=== PATIENT | female | born 1990 | race Caucasian/White ===

== ENCOUNTER 2018-05-02 18:10 | Outpatient (CLI) | payer OTHER ==
[~2018-05-02] VITALS: Ht 160 cm; Wt 75.7 kg
[~2018-05-02 18:10] MED LIST: BACTDS PO; HYDR-3980 PO; IBUP-1542 PO
[2018-05-02 18:19] VITALS: BP 102/58; PULSE 95; RESP 20; Ht 160 cm; Wt 75.7 kg
[2018-05-02] MEDS ORDERED: PREN1TAB13 PO (18:21)
--- NOTE | 2018-05-02 20:42 | PN ---
Triage Information Date/Time 05/02/18 Reason for visit: groin pain with walking and standing ,resting alleviated pain Weeks of Gestation 30w2d /Para Diabetes: none Hypertention: none Objective Vital Signs Date Temp Pulse Resp B/P (MAP) Pulse Ox O2 O2 Flow FiO2 Time Delivery Rate 05/02/18 97.4 95 20 102/58 Room Air 18:19 (73) Heart Rate: 130's Heart Rate Comments CAT I Contractions: None Exam abdomen soft no tenderness Results/Medications Result Diagram: 05/02/181905 Results 24 hrs Laboratory Tests Test 05/02/18 19:06 05/02/18 19:15 White Blood Count 10.4 Red Blood Count 3.64 L Hemoglobin 10.2 L Hematocrit 31.5 L Mean Corpuscular Volume 86.5 Mean Corpuscular Hemoglobin 28.0 L Mean Corpuscular Hemoglobin Concent 32.4 Red Cell Distribution Width 13.1 Platelet Count 211 Mean Platelet Volume 8.8 Immature Granulocytes % 2.000 H Neutrophils % 70.2 Lymphocytes % 14.7 L Monocytes % 10.8 Eosinophils % 1.9 Basophils % 0.4 Nucleated Red Blood Cells % 0.0 Immature Granulocytes # 0.210 H Neutrophils # 7.3 Lymphocytes # 1.5 Monocytes # 1.1 H Eosinophils # 0.2 Basophils # 0.0 Nucleated Red Blood Cells # 0.0 Urine Color YELLOW Urine Clarity CLEAR Urine pH 6.0 Urine Specific [place] 1.009 Urine Ketones NEGATIVE Urine Nitrite NEGATIVE Urine Bilirubin NEGATIVE Urine Urobilinogen NEGATIVE Urine Leukocyte Esterase TRACE A Urine Microscopic RBC 0 Urine Microscopic WBC 1 Urine Hemoglobin NEGATIVE Urine Glucose NEGATIVE Urine Total Protein NEGATIVE Imaging Results CVL 4.3 BPP 8/8 SHANNAN 20.9 Disposition: Discharge Assessment/Plan A IUP 30w2d groin pain secondary to P advise to rest prn with comon sense also advise not to ride bike(stationary) RTH prn with routine labor instructions BEHZAD BABCOCK MD May 02, 2018 20:42
--- NOTE | 2018-05-03 06:04 | TRIAGE ---
OB Triage Datetime Report Generated by CPN: 05/03/2018 06:03 Datetime: 05/02/2018 20:28 Stage of : OB Triage Monitor Mode: External US FHR Baseline Changes: No Baseline Change Variability: Moderate 6-25 bpm Accelerations: 15X15 Datetime: 05/02/2018 19:29 Stage of : OB Triage Labor Evaluation Monitor Mode: External Quality: Mild Pattern: Normal: <= 5 Contractions in 10 Minutes Resting Tone [place]: Relaxed Heart Rate FHR Baseline Rate: 130 Monitor Mode: External US FHR Baseline Changes: No Baseline Change Variability: Moderate 6-25 bpm Accelerations: 15X15 Decelerations: None Category: Category I Datetime: 05/02/2018 19:00 Labor Evaluation Monitor Mode: External Heart Rate FHR Baseline Rate: 140 Monitor Mode: External US FHR Baseline Changes: No Baseline Change Variability: Moderate 6-25 bpm Accelerations: 15X15 Decelerations: None Category: Category I Pain Assessment Pain Presence: Constant Pain Type: Ache Pain Location: Perineum Datetime: 05/02/2018 18:16 EGA: 30.2 Datetime: 05/02/2018 18:14 Stage of : OB Triage Assessment Type: Triage Maternal Assessment Level of Consciousness: Fully Conscious DTR's/Clonus: DTRs 2+; No Clonus Headache: Denies Blurred Vision: No Respiratory Effort: Unlabored; Regular Rhythm; Equal Expansion Breath Sounds, Left: Clear and Equal Breath Sounds, Right: Clear and Equal Nausea/Vomiting: Denies RUQ Epigastric Pain: Denies Lower Extremities Edema: None Degree: None Upper Extremities Edema: None Degree: None Facial Edema: None Temperature Route: Axillary Fall Risk Assessment History of Falling: (0) No Secondary Diagnosis: (0) No Ambulatory Aid: (0) Bedrest/Nurse Assist IV Therapy: (0) No Gait: (0) Normal/Bedrest/Immobile Mental Status: (0) Oriented to Own Ability Fall Score: 0 Fall Risk Score Definition: No Risk: No action required Datetime: 05/02/2018 17:56 Time of Arrival: 05/02/2018 17:56 EGA: 30.1 Arrived By: Ambulatory Arrived From: Home Chief Complaint: GROIN PAIN WHEN AMBULATING Movement: Present Rupture of Membranes: Denies Vaginal Bleeding: None Vaginal Discharge: Denies Recent Sexual Intercouse: Denies Abdominal Trauma: Not Applicable Patient Complaints: Other Initial Plan: NST/BPP/CERVICAL LENGTH, UA, CBC
== END 2018-05-02 20:40 | disposition home or self-care (01) ==
LOC: OBT 18:10 → L-D 18:11 → OBT 20:40
PROVIDERS: ATTEND Obstetrics & Gynecology
DX: O26.893 Other specified pregnancy related conditions, third trimester (principal); Z3A.30 30 weeks gestation of pregnancy; R10.30 Lower abdominal pain, unspecified
CPT/HCPCS: 76817; 76818; 81001; 85025; 87086; G0463

== ENCOUNTER 2018-07-09 14:11 | Inpatient (IN) | payer OTHER ==
[~2018-07-09] VITALS: Ht 160 cm; Wt 81.4 kg
[~2018-07-09 14:11] MED LIST changes: -BACTDS PO; -HYDR-3980 PO; -IBUP-1542 PO; +PREN1TAB13 PO
[2018-07-09] MEDS ORDERED: LACTATED RINGER'S 1,000 ML IV SCH ×2 (14:19→22:17)
[2018-07-09 14:22] VITALS: Ht 160 cm; Wt 81.4 kg
[2018-07-09] MEDS ORDERED: OXYTOCIN 30 UNITS/LR 500 ML IV SCH (14:30)
[2018-07-09] MEDS ORDERED: CARBOPROST 250 MCG INJ IM PRN ×2 (14:30→22:30)
[2018-07-09] MEDS ORDERED: MISOPROSTOL 200 MCG TAB PR PRN ×2 (14:30→22:30)
[2018-07-09] MEDS ORDERED: OXYTOCIN 30 UNITS/LR 500 ML IV PRN ×2 (14:30→22:30)
[2018-07-09] MEDS ORDERED: CEFAZOLIN 2 GM/50 ML (PMX) 50 ML IVPB SCH (14:30)
[2018-07-09] MEDS ORDERED: METHYLERGONOVINE 0.2 MG INJ IM PRN ×2 (14:30→22:30)
[2018-07-09] MEDS ORDERED: PROPOFOL 200 MG INJ ONE (16:00)
[2018-07-09] MEDS ORDERED: CEFAZOLIN 1 GM INJ ONE (16:00)
--- NOTE | 2018-07-09 16:19 | PREAC ---
Date/Time of Note Date/Time of Note DATE: 07/09/18 TIME: 16:18 Anesthesia Eval and Record Evaluation Time Pre-Procedure Interview DATE: 07/09/18 TIME: 16:18 Age 27 Sex female NPO: 8 hrs Preoperative diagnosis primary c section Planned procedure primary c section Past Medical History Past Medical History: None Surgery & Anesthesia Issues No known issue Meds Anticoagulation: No Beta Gerry within 24 hr: No Reason Beta Gerry not given: Pt. not on B-Gerry Reported Medications Pnv95/Ferrous Fumarate/FA ( Vitamins Tablet) 1 Each Tablet, 1 EACH PO DAILY, TAB 05/02/18 Current Medications Lactated Ringer's 1,000 ml @ 125 mls/hr Q8H IV Last administered on 07/09/18at 15:22; Admin Dose 125 MLS/HR; Start 07/09/18 at 14:19 Cefazolin Sodium/ Dextrose 50 ml @ 100 mls/hr ONCE IVPB ; Start 07/09/18 at 14:30 Oxytocin/Lactated Ringer's 500 ml @ 125 mls/hr POST IV ; Start 07/09/18 at 14:30 Oxytocin/Lactated Ringer's 500 ml @ 0 mls/hr ONCE PRN IV .VAGINAL BLEEDING; Start 07/09/18 at 14:30 Methylergonovine Maleate (Methergine) 0.2 mg ONCE PRN IM .VAGINAL BLEEDING; Start 07/09/18 at 14:30 Carboprost Tromethamine (Hemabate) 250 mcg ONCE PRN IM .VAGINAL BLEEDING; Start 07/09/18 at 14:30 Misoprostol (Cytotec) 1,000 mcg ONCE PRN NM .VAGINAL BLEEDING; Start 07/09/18 at 14:30 Meds reviewed: Yes Allergies Coded Allergies: No Known Allergy (Unverified , 12/02/15) Allergies Reviewed: Yes Labs/Studies Labs Reviewed: Reviewed by anesthesiologist Result Diagram: 07/09/18 1430 Laboratory Tests 07/09/18 14:30 Blood Bank Test 07/09/18 14:30 Antibody Screen NEGATIVE Blood Type O POSITIVE Rh Immune Globulin Candidate NO test: N/A Pre-procedure Exam Airway: Adequate mouth opening, Adequate thyromental dist Mallampati: Mallampati IV Teeth: Normal Lung: Normal Heart: Normal ASA Physical Status ASA physical status: 2 Emergency: None Pre-operative Attestations Prior to commencing anesthesia and surgery, the patient was re-evaluated, there was verification of: *The patient's identity *The results of appropriate recent lab work and preoperative vital signs *The above evaluation not changing prior to induction *Anesthetic plan, risk benefits, alternative and complications discussed with patient/family; questions answered; patient/family understands, accepts and wishes to proceed. JAMAR SHARPE DO July 09, 2018 16:19
[2018-07-09] MEDS ORDERED: FENTAnyl 50 MCG/ML VIAL ONE (16:39)
[2018-07-09] MEDS ORDERED: morphine SULFATE/PF (10 MG/10 ML) INJ ONE (16:39)
[2018-07-09] MEDS ORDERED: PHENYLephrine (100 MCG/ML) 10ML SYG ONE (16:50)
[2018-07-09] MEDS ORDERED: ONDANSETRON 4 MG INJ ONE (16:57)
[2018-07-09] MEDS ORDERED: DEXAMETHASONE 4 MG/ML 1 ML INJ ONE (16:57)
[2018-07-09] MEDS ORDERED: FAMOTIDINE 20 MG INJ ONE (16:58)
[2018-07-09] MEDS ORDERED: AZITHROMYCIN 500MG/NS (PMX) 250 ML IVPB ONE (17:00)
[2018-07-09] MEDS ORDERED: MIDAZOLAM 1 MG/ML 2 ML INJ ONE (17:11)
--- NOTE | 2018-07-09 18:00 | HP ---
Date/Time of Note Date/Time of Note DATE: 07/09/18 TIME: 17:56 OB - History Hx of Present Free Text/Dictation 27-year-old patient 2 para 1 at 40 weeks gestation admitted because of a request to have a delivery This service on multiple occasions tried really aggressively change the patient mind however she remained hardheaded about having a primary section as mode of delivery She already had vaginal delivery before and yet she did not have any further vaginal deliveries Last Menstrual Period: Nov 11, 2017 Estimated Due Date: July 09, 2018 : 2 Para: 1 Care: Good Care Ultrasounds: Normal mid trimester US Obstetrical Complications: None Medical Complications: None Past Family/Social History * Past Medical, Surgical, Family and Obstetric Histories reviewed from chart. Blood Type: O+ Rubella: immune RPR/VDRL: Negative GBS Status: Negative HBsAG: Negative OB Admission Exam Physical Exam HEENT: WNL Heart: Rhythm Normal Lungs: Clear, Equal Abdomen: WNL Extremities: Normal Reflexes: Normal Cervical Dilatation: None Effacement: 0% Station: -3 Membranes: Intact Heart Rate: 140's Accelerations: Accelerations Present Decelerations: No Decelerations Varibility: Marked Contractions on Admission: None Last 72 hours Lab Results CBC & BMP 07/09/18 14:30 OB Assessment/Plan Other Assessment: Term gestation Patient demands a delivery Other plan: We will proceed with primary section SHARDA ELLIOTT MD July 09, 2018 18:00
[2018-07-09] MEDS ORDERED: KETOROLAC 30 MG INJ IV STA (18:12)
[2018-07-09] MEDS ORDERED: ACETAMINOPHEN 500 MG TAB PO STA (18:12)
--- NOTE | 2018-07-09 18:12 | OPR ---
Operative Report Planned Procedure Procedure date July 09, 2018 Procedure(s) Primary delivery Performed by see signature line Parts Counter Salesperson: ANTONIO TRISTAN M.D. Anesthesiologist: JAMAR SHARPE DO Pre-procedure diagnosis Term gestation No desire for vaginal delivery [id number] Anesthesia Type: [id number] spinal Post-Procedure Post-procedure diagnosis Status post Findings Live Baby in OT position Meconium stained amniotic fluid Normal-appearing right and left fallopian tubes and ovaries Estimated Blood Loss: 500 - 600 mls Specimen(s) none Grafts/Implant(s) none Complication(s) none Pt Condition post procedure: stable Disposition: PACU Procedure Description Under satisfactory anaesthesia a Pfannenstiel incision was made two fingerbreadth above and parallel to the symphysis of pubis. Incision was extended laterally to the border of the Recti muscles on either sides. Incision was carried down with sharp and blunt dissection until fascia was reached. Anterior Recti muscle fascia was incised in mid portion and incis ion extended laterally to the border of skin incision. Fascia was mobilized from muscle superiorly and Recti muscles were from midline using sharp and blunt dissection. Peritoneum was visualized; Avoiding bowel and bladder it was incised . Incision was extended superiorly and inferiorly. Bladder blade was placed. Posterior peritoneum covering the lower segment of the uterus and lower segment of the uterus were incised. Incision was extended laterally to the border of Round Lig. on either sides and baby was delivered from OP. position . Amniotic fluid appeared clear. Cord blood was obtained and cord had 3 vessels . Placenta was delivered spontaneously and appeared intact and complete. Intrauterine cavity was rubbed with a laparotomy sponge. Uterine incision was closed in 2 layers using running stitches of No1 Monocryl. Hemostasis appeared secure. Ovaries and Fallopian tubes were within normal limits. Announcing needle, lap sponge and instrument count to be correct abdomen was closed in layers as follows: Peritoneum and Recti muscles with running stitches of 20 Vicryl. Fascia with running stitch of No 1 PDS. Subcutaneous tissue with running stitches of 2-0 Monocryl and skin was closed using liya. Patient tolerated the procedure well and was transferred to [facility] in good condition. SHARDA ELLIOTT MD July 09, 2018 18:12
[2018-07-09 20:35] VITALS: BP 106/69; RESP 19
[2018-07-09] MEDS ORDERED: DIPHENHYDRAMINE 50 MG INJ IV PRN (22:30)
[2018-07-09] MEDS ORDERED: OXYCODONE/ACETAMINOPHEN (5/325) TAB PO PRN (22:30)
[2018-07-09] MEDS ORDERED: NALOXONE (0.4 MG/ML) INJ IV PRN (22:30)
[2018-07-09] MEDS ORDERED: HYDROmorphONE 0.5 MG/0.5 ML SYG IV PRN ×2 (22:30)
[2018-07-09] MEDS ORDERED: ZOLPIDEM 5 MG TAB PO PRN (22:30)
[2018-07-09] MEDS ORDERED: NA PHOSPHATE/BIPHOS 133 ML ENEMA PR PRN (22:30)
[2018-07-10] VITALS: BP 93/51; RESP 19
[2018-07-10] MEDS: CEFAZOLIN 2 GM/50 ML (PMX) 50 ML IVPB SCH ×3 (01:08→16:13)
[2018-07-10] MEDS: KETOROLAC 30 MG INJ IV PRN ×3 (01:09→16:43)
[2018-07-10 04:00] VITALS: BP 100/51; RESP 18
[2018-07-10] MEDS: CLINDAMYCIN 300 MG CAP PO SCH ×4 (06:00→17:39)
[2018-07-10] MEDS: LACTATED RINGER'S 1,000 ML IV SCH ×2 (06:50→15:00)
[2018-07-10 07:57] VITALS: BP 96/51; PULSE 82; RESP 18
[2018-07-10] MEDS ORDERED: BISACODYL 10 MG SUPP PR ONE (11:30)
[2018-07-10 12:00] VITALS: BP 90/54; PULSE 73; RESP 18
--- NOTE | 2018-07-10 13:57 | PN ---
Date/Time of Note Date/Time of Note DATE: 07/10/18 TIME: 13:56 Assessment/Plan VTE Prophylaxis VTE Prophylaxis Intervention: ambulation Lines/Catheters IV Catheter Type (from Nrsg): Peripheral IV Assessment/Plan Assessment/Plan Status post delivery postop day #1 Advance diet and ambulate Continue to monitor vital signs Repeat CBC next day because of elevated white Subjective 24 Hr Interval Summary Passing flatus and no bowel movement Constitutional: no complaints, improved, ambulates, BM, flatus, urine output Pain Control: well controlled Exam/Review of Systems Vital Signs Vitals Vital Signs Date Temp Pulse Resp B/P (MAP) Pulse Ox O2 O2 Flow FiO2 Time Delivery Rate 07/10/18 98.0 82 18 96/51 (66) 07:57 07/10/18 96 04:00 07/09/18 Room Air 20:35 Intake and Output 07/09/18 07/09/18 07/10/18 1515:00 23:00 07:00 IntakeIntake Total 1250 ml OutputOutput Total 954 ml 1100 ml BalanceBalance 296 ml -1100 ml Exam Free Text/Dictation Abdomen is soft with present bowel sounds, abdomen does not seem distended Incision is covered Constitutional: alert, oriented, well developed Psych: no complaints, nl mood/affect Head: normocephalic, atraumatic Eyes: nl conjunctiva, EOMI, nl lids, nl sclera ENMT: nl external ears & nose, nl lips & teeth, nl nasal mucosa & septum, mucosa pink and moist Neck: supple, non-tender Respiratory: clear to auscultation, normal air movement Cardiovascular: regular rate and rhythm, nl pulses Gastrointestinal: soft, nl liver, spleen, non-tender Musculoskeletal: nl extremities to inspection, nl gait and stance Extremities: normal pulses Neurological: BATTERY TESTER FIELD II-XII intact, nl mental status, nl speech, nl strength Skin: nl turgor, rash or lesions Lymph: nl lymph nodes Results Result Diagram: 07/10/18 0736 SHARDA ELLIOTT MD July 10, 2018 13:57
--- NOTE | 2018-07-10 14:29 | PAC ---
Date/Time of Note Date/Time of Note DATE: 07/10/18 TIME: 14:29 Post-Anesthesia Notes Post-Anesthesia Note Last documented vital signs Vital Signs Date Temp Pulse Resp B/P (MAP) Pulse Ox O2 O2 Flow FiO2 Time Delivery Rate 07/10/18 98.0 73 18 90/54 (66) 94 Room Air 12:00 Activity: WNL Respiratory function: WNL Cardiovascular function: WNL Mental status: Baseline Pain reasonably controlled: Yes Hydration appropriate: Yes Nausea/Vomiting absent: Yes JAMAR SHARPE DO July 10, 2018 14:29
[2018-07-10 16:03] VITALS: BP 95/53; PULSE 82
[2018-07-10 19:30] VITALS: BP 97/58; PULSE 79; RESP 18
[2018-07-10] MEDS: LANOLIN HPA 1 PKT TOP PRN (22:13)
[2018-07-10] MEDS: IBUPROFEN 800 MG TAB PO SCH (22:13)
[2018-07-10] MEDS: SENNA/DOCUSATE NA (8.6MG/50MG) TAB PO SCH (22:14)
[2018-07-11] MEDS: CLINDAMYCIN 300 MG CAP PO SCH ×4 (00:25→17:16)
[2018-07-11] MEDS: HYDROCODONE/APAP (5/325) TAB PO PRN (00:25)
[2018-07-11 04:00] VITALS: BP 93/55; PULSE 72; RESP 18
[2018-07-11] MEDS: IBUPROFEN 800 MG TAB PO SCH ×3 (05:26→22:08)
[2018-07-11 07:59] VITALS: BP 82/54; PULSE 71; RESP 16
[2018-07-11] MEDS: SENNA/DOCUSATE NA (8.6MG/50MG) TAB PO SCH ×2 (09:08→20:44)
[2018-07-11 12:30] VITALS: BP 101/64; PULSE 83; RESP 17
--- NOTE | 2018-07-11 14:37 | DS ---
Date/Time of Note Date/Time of Note Home today or next day DATE: 07/11/18 TIME: 14:36 Obstetrical Discharge Record Final Diagnosis Final Diagnosis: Term delivered Other Final Diagnosis Status post delivery Section Section: Primary Primary Indication Patient request Condition on Discharge Physical Assessment Last Vitals: See nurse's notes Voiding: Yes Bowel Movement: Yes Breast: Soft, non-tender, Filling Fundus: Firm Abdomen and Incision: Abdomen is soft with firm fundus Incision is without induration and no erythema Calf Tenderness: No Patient Condition: Good SHARDA ELLIOTT MD July 11, 2018 14:37
--- NOTE | 2018-07-11 14:38 | DS ---
Date/Time of Note Date/Time of Note DATE: 07/11/18 TIME: 14:37 Discharge Summary Admission/Discharge Info Admit Date/Time July 09, 2018 at 14:11 Discharge Date/Time July 11 or July 12, 2018 Discharge Diagnosis Status post delivery Patient Condition: Good Procedures Primary Hx of Present Illness 27-year-old female underwent primary section per her request Hospital Course She had uncomplicated course and was discharged home on his second or third day tolerating regular diet fully ambulatory with good prognosis and condition Home Meds Reported Medications Pnv95/Ferrous Fumarate/FA ( Vitamins Tablet) 1 Each Tablet, 1 EACH PO DAILY, TAB 05/02/18 Follow-up Plan 4 days in clinic for staple removal Primary Care Provider Not On Staff Doctor Time spent on discharge: > 30 minutes Pending Labs Laboratory Tests Test 07/11/18 06:20 White Blood Count 11.5 10^3/ul (4.8-10.8) Red Blood Count 3.72 10^6/ul (4.20-5.40) Hemoglobin 9.5 g/dl (12.0-16.0) Hematocrit 30.4 % (37.0-47.0) Mean Corpuscular Volume 81.7 fl (82.0-101.0) Mean Corpuscular Hemoglobin 25.5 pg (29.0-33.0) Mean Corpuscular Hemoglobin Concent 31.3 g/dl (32.0-37.0) Red Cell Distribution Width 15.9 % (11.5-14.5) Platelet Count 277 10^3/UL (140-415) Mean Platelet Volume 9.4 fl (7.4-10.4) Immature Granulocytes % 0.900 % (0.001-0.429) Neutrophils % 70.5 % (39.0-77.0) Lymphocytes % 16.5 % (15.0-51.0) Monocytes % 10.0 % (0.0-11.0) Eosinophils % 1.7 % (0.0-7.0) Basophils % 0.4 % (0.0-2.0) Nucleated Red Blood Cells % 0.0 /100WBC (0.0-0.0) Immature Granulocytes # 0.100 10^3/ul (0.0-0.031) Neutrophils # 8.1 10^3/ul (1.6-7.5) Lymphocytes # 1.9 10^3/ul (0.8-2.9) Monocytes # 1.1 10^3/ul (0.3-0.9) Eosinophils # 0.2 10^3/ul (0.0-0.5) Basophils # 0.1 10^3/ul (0.0-0.1) Nucleated Red Blood Cells # 0.0 10^3/ul (0.0-0.0) SHARDA ELLIOTT MD July 11, 2018 14:38
[2018-07-11] MEDS ORDERED: ACET325T33 PO (14:48)
--- NOTE | 2018-07-11 14:48 | PD.PPDC ---
[employer]TA[employer]CHANDISING Discharge Instruction Provider Information Physician Information 27-year-old female had primary section per request Diagnosis [id number] Final Diagnosis: Gpmyu0m Status post Condition [id number] Patient Condition: Uzuev0p Good Diet Ikfhi1Vd Diet: Lnylv6t Resume Regular Diet Activity/Restrictions Pytma6Mw Activity: Dqeof9i May Shower Rrebz8Qk Restrictions: Dekvh1e No Exercising Nothing in the Vagina Vvkhs2Yu Return to Work or School: Rblll4b Sep 09, 2018 Wound/Drain Care Instructions Dwroc9Vm Wound/Drain Care Instructions: Ntrmd0j Keep clean and dry Follow-up Follow-up with Physician: 4, Day/Days (In clinic for staple removal) 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
[2018-07-11] MEDS ORDERED: IBUP800T48 PO (14:49)
[2018-07-11] MEDS ORDERED: ACETAMINOPHEN 325 MG TAB PO PRN (15:00)
[2018-07-11 15:50] VITALS: BP 95/61; PULSE 76; RESP 18
[2018-07-11 20:00] VITALS: BP 109/73; PULSE 75; RESP 19
[2018-07-11] MEDS: LANOLIN HPA 1 PKT TOP PRN (22:08)
[2018-07-12] MEDS: CLINDAMYCIN 300 MG CAP PO SCH ×3 (00:17→13:21)
[2018-07-12] MEDS: HYDROCODONE/APAP (5/325) TAB PO PRN (00:20)
[2018-07-12 04:27] VITALS: BP 101/63; PULSE 74; RESP 18
[2018-07-12] MEDS: IBUPROFEN 800 MG TAB PO SCH ×2 (06:28→13:22)
[2018-07-12 08:28] VITALS: BP 85/54; PULSE 66; RESP 16
[2018-07-12] MEDS ORDERED: DIPHTH/TET/ACEL PERTUSS (ADULT) 0.5 ML VIAL IM* ONE (09:00)
[2018-07-12] MEDS ORDERED: MEASLES,MUMPS,RUBELLA VACCINE INJ SC* ONE (09:00)
[2018-07-12] MEDS: SENNA/DOCUSATE NA (8.6MG/50MG) TAB PO SCH (10:18)
--- NOTE | 2018-07-13 15:43 | DELSUM ---
Delivery Summary A-C Datetime Report Generated by CPN: 07/13/2018 15:42 DELIVERY PERSONNEL Commercial Loan Processor: Villondo, Samanta MATERNAL INFORMATION Delivery Anesthesia: Spinal Medications in Delivery: See Anesthesiologist notes Delivery QBL (ml): 600 Placenta Cultured: No Maternal Complications: None LABOR SUMMARY EDC: 07/09/2018 00:00 No. Babies in Womb: 1 Attempted: No Labor Anesthesia: None LABOR INFORMATION Reason for Induction: Not Applicable Oxytocin: N/A Group B Beta Strep: Negative Antibiotics # of Doses: 2 Antibiotics Time of Last Dose: 07/09/2018 16:50 Steroids Given: None Reason Steroids Not Administered: Not Applicable MEMBRANES Membranes Rupture Method: Artificial Rupture of Membranes: 07/09/2018 17:08 Length of Rupture (hr): 0.02 Amniotic Fluid Color: Clear Amniotic Fluid Amount: Moderate Amniotic Fluid Odor: None STAGES OF LABOR Stage 3 hr: 0 Stage 3 min: 2 CSECTION DELIVERY Primary Indication: Other Other Primary Indication: Elective CSection Urgency: Elective CSection Incidence: Primary Labor: No Labor Elective: Elective CSection Incision: Lower Uterine Transverse BABY A INFORMATION Delivery Date/Time: 07/09/2018 17:09 Method of Delivery: Born in Route : No : N/A Forceps: N/A Vacuum Extraction: N/A Shoulder Dystocia : N/A SHOULDER DYSTOCIA BABY A Delivery Date/Time: 07/09/2018 17:09 PRESENTATION/POSITION BABY A Presentation: Cephalic Cephalic Presentation: Vertex Vertex Position: Left Occipital Anterior Breech Presentation: N/A PLACENTA INFORMATION BABY A Placenta Delivery Time : 07/09/2018 17:11 Placenta Method of Delivery: Manual Removal Placenta Status: Delivered SCORES BABY A Heart Rate 1 min: >100 bpm Resp Effort 1 min: Good Cry Reflex Irritability 1 min: Cough/Sneeze/Pulls Away Muscle Tone 1 min: Active Motion Color 1 min: Body [place], Extremit Blue Resuscitation Effort 1 min: Tactile Stimulation SCORE 1 MIN: 9 Heart Rate 5 min: >100 bpm Resp Effort 5 min: Good Cry Reflex Irritability 5 min: Cough/Sneeze/Pulls Away Muscle Tone 5 min: Active Motion Color 5 min: Body [place], Extremit Blue Resuscitation Effort 5 min: Tactile Stimulation SCORE 5 MIN: 9 INFANT INFORMATION BABY A Gestational Age at Delivery: 40.0 Gestational Status: Full Term- 39- 40.6 Weeks Outcome : Liveborn Condition : Stable Infant Sex: Female IDENTIFICATION/MEDS BABY A ID Band Number: [id number] ID Band Location: Right Leg; Left Arm Sensor Applied: Yes Sensor Number: [id number] Sensor Location : Cord Clamp Vitamin K Given : Not Given Erythromycin Given: Not Given WEIGHT/LENGTH BABY A Infant Birthweight (gm): 4180 Infant Weight (lb): 9 Weight (oz): 3 Length (in): 20.50 Length (cm): 52.07 CORD INFORMATION BABY A No. Cord Vessels: 3 Nuchal Cord : N/A Cord Blood Taken: Yes Suction: Mouth; Nose ASSESSMENT BABY A Infant Complications: None Physical Findings at Delivery: Within Normal Limits Infant Respirations: Appears Normal Instructional Developer/ALS Called : No Infant Care By: Filomena Cummings Transferred To: Remains with Mother
== END 2018-07-12 15:00 | disposition home or self-care (01) | DRG 788 ==
LOC: L-D 14:11 → PP1 20:34
PROVIDERS: ADMIT Obstetrics & Gynecology; ATTEND Obstetrics & Gynecology
PROC: 10D00Z1 Extraction of Products of Conception, Low, Open Approach (ICD-10-PCS; principal; 2018-07-09 15:30)
DX: O82 Encounter for cesarean delivery without indication (principal); O77.0 Labor and delivery complicated by meconium in amniotic fluid; Z3A.40 40 weeks gestation of pregnancy; Z37.0 Single live birth; Z23 Encounter for immunization
CPT/HCPCS: 80307; 85025; 85610; 85730; 86592; 86850; 86900; 86901; 90715; 99464; J0456; J0690; J1100; J1885; J2250; J2274; J2370; J2405; J2590; J3010; J7120